=== PATIENT | male | born 1980 | race Caucasian/White ===

== ENCOUNTER 2016-11-13 16:20 | Emergency (ER) | payer OTHER ==
[2016-11-13 16:26] VITALS: PULSE 100; RESP 20; TEMP 97.7; O2SAT 94
[2016-11-13] MEDS ORDERED: PROPARACAINE HCL 0.5% OPHTHALMIC SOL LEFTEYE ONE (16:39)
[2016-11-13] MEDS ORDERED: PROPARACAINE HCL 0.5% OPHTHALMIC SOL ONE (16:40)
[2016-11-13 17:19] VITALS: BP 147/101
== END 2016-11-13 17:15 | disposition home or self-care (01) ==
LOC: ED 16:20
DX: S05.02XA Injury of conjunctiva and corneal abrasion without foreign body, left eye, initial encounter (principal)
CPT/HCPCS: 99282